=== PATIENT | female | born 1965 | race Caucasian/White ===

== ENCOUNTER 2018-10-21 09:01 | Outpatient (CLI) | payer OTHER | END 2018-10-21 09:02 | disposition home or self-care (01) | LOC: BICMAMMO 09:01 | PROVIDERS: ATTEND Family Medicine | DX: Z12.31 Encounter for screening mammogram for malignant neoplasm of breast (principal) | CPT/HCPCS: 77063; 77067 ==

== ENCOUNTER 2019-04-11 12:06 | Emergency (ER) | payer OTHER, SELFPAY ==
[2019-04-11] MEDS ORDERED: Adacel (T-DAP) 0.5 ML SYRINGE ONE (13:07)
== END 2019-04-11 13:40 | disposition home or self-care (01) ==
LOC: ERS 12:06
DX: S81.811A Laceration without foreign body, right lower leg, initial encounter (principal); E11.9 Type 2 diabetes mellitus without complications; I10 Essential (primary) hypertension; F32.9 Major depressive disorder, single episode, unspecified; W26.8XXA Contact with other sharp object(s), not elsewhere classified, initial encounter
CPT/HCPCS: 90471; 90715

== ENCOUNTER 2021-10-14 20:04 | Emergency (ER) | payer OTHER | END 2021-10-14 20:54 | disposition home or self-care (01) | LOC: ERS 20:04 | DX: J01.90 Acute sinusitis, unspecified (principal); I10 Essential (primary) hypertension; E11.9 Type 2 diabetes mellitus without complications | CPT/HCPCS: 99282 ==

== ENCOUNTER 2021-11-16 23:26 | Emergency (ER) | payer OTHER ==
[2021-11-17] MEDS ORDERED: HYDROcodone/Acetaminophen 5/325 mg Tablet ONE (01:09)
[2021-11-17] MEDS ORDERED: Cyclobenzaprine 10 MG TAB ONE (01:09)
[2021-11-17] MEDS ORDERED: Lisinopril 10 MG TAB ONE (01:10)
== END 2021-11-17 04:39 | disposition home or self-care (01) ==
LOC: ERS 23:26
DX: S16.1XXA Strain of muscle, fascia and tendon at neck level, initial encounter (principal); I10 Essential (primary) hypertension; E11.9 Type 2 diabetes mellitus without complications; Z79.84 Long term (current) use of oral hypoglycemic drugs; Z79.899 Other long term (current) drug therapy; X50.0XXA Overexertion from strenuous movement or load, initial encounter
CPT/HCPCS: 93005

== ENCOUNTER 2022-03-25 10:30 | Emergency (ER) | payer BC, OTHER | END 2022-03-25 12:35 | disposition home or self-care (01) | LOC: ERS 10:30 | DX: J20.9 Acute bronchitis, unspecified (principal); E11.9 Type 2 diabetes mellitus without complications; I10 Essential (primary) hypertension; Z79.899 Other long term (current) drug therapy; Z79.4 Long term (current) use of insulin | CPT/HCPCS: 71045 ==

== ENCOUNTER 2023-03-24 06:18 | Emergency (ER) | payer BC ==
[2023-03-24 07:52] LABS: #Eosinphils 0.2 thou/uL (0.0-0.7); #Lymphocytes 2.1 thou/uL (1.20-3.40); #Monocytes 0.7 thou/uL (0.11-0.59); #Neutrophils 6.1 thou/uL (1.40-6.50); %Basophils 0.5 % (0.0-1.0); %Eosinophils 2.6 % (0.0-10.0); %Lymphocytes 22.6 % (21.0-51.0); %Neutrophils 66.3 % (42.0-75.0); Hemoglobin 13.5 g/dL (12.0-16.0); Mean Corpuscular HGB CONC 32.8 g/dL (32.0-36.0); Mean Corpuscular Hemoglobin 28.5 pg (27.0-31.0); Mean Corpuscular Volume 86.7 fl (78.0-98.0); Mean Platelet Volume 7.5 fL (7.4-10.4); Platelet Count 284 10x3/uL (130-400); RBC Distribution Width 13.5 % (11.5-14.5); Red Blood Cell (RBC) Count 4.74 mill/uL (4.20-5.40); White Blood Cell (WBC) Count 9.2 10x3/uL (4.8-10.8)
[2023-03-24 08:11] LABS: ALT (SGPT) 22 U/L (8-55); AST (SGOT) 16 U/L (5-34); Alkaline Phosphatase 116 U/L (40-110); Anion Gap 15 mmol/L (10-20); BUN (Urea Nitrogen) 20 mg/dL (9.8-20.1); Bilirubin, Total 0.5 mg/dL (0.2-1.2); Calc. Creatinine Clearance 0 mL/min (70-130); Calcium 9.5 mg/dL (7.8-10.44); Carbon Dioxide 26 mmol/L (22-29); Chloride 101 mmol/L (98-107); Estimated GFR 90; Globulin 3.2 g/dL (2.4-3.5); Glucose 181 mg/dL (70-105); Potassium 4.1 mmol/L (3.5-5.1); Protein, Total 7.2 g/dL (6.0-8.3); Sodium 138 mmol/L (136-145)
== END 2023-03-24 09:14 | disposition home or self-care (01) ==
LOC: ERS 06:18
DX: L03.115 Cellulitis of right lower limb (principal); E11.9 Type 2 diabetes mellitus without complications; I10 Essential (primary) hypertension
CPT/HCPCS: 36415; 80053; 85025

== ENCOUNTER 2023-03-28 16:28 | Emergency (ER) | payer BC ==
[2023-03-28] MEDS ORDERED: Lidocaine 1% MPF 2 ML VIAL ONE (17:33)
[2023-03-28] MEDS ORDERED: cefTRIAXone (ROCEPHIN) 1 GM VIAL ONE (17:33)
== END 2023-03-28 17:59 | disposition home or self-care (01) ==
LOC: ERS 16:28
DX: L03.115 Cellulitis of right lower limb (principal); E11.9 Type 2 diabetes mellitus without complications; Z79.899 Other long term (current) drug therapy; Z79.84 Long term (current) use of oral hypoglycemic drugs
CPT/HCPCS: 96372; 99283; J0696

== ENCOUNTER 2023-08-19 20:55 | Emergency (ER) | payer BC ==
[2023-08-19] MEDS ORDERED: HYDROcodone/Acetaminophen 5/325 mg Tablet ONE (23:11)
[2023-08-19] MEDS ORDERED: Lidocaine 1% PF 5 ML VIAL ONE (23:12)
[2023-08-19] MEDS ORDERED: Ketorolac Tromethamine 30 MG/ML VIAL ONE (23:12)
== END 2023-08-19 23:56 | disposition home or self-care (01) ==
LOC: ERS 20:55
DX: K02.9 Dental caries, unspecified (principal); E11.9 Type 2 diabetes mellitus without complications; I10 Essential (primary) hypertension
CPT/HCPCS: 64450; 96372; J1885